=== PATIENT | female | born 1990 | race Caucasian/White ===

== ENCOUNTER 2017-04-23 20:20 | Inpatient (IN) | payer MEDICARE ==
[~2017-04-23] VITALS: Ht 152.4 cm; Wt 98.0 kg
[2017-04-23] MEDS ORDERED: IV NS 0.9% 1,000 ML IV PRN (20:57)
[2017-04-23] MEDS ORDERED: ACETAMINOPHEN 325 MG TABLET PO PRN (21:00)
[2017-04-23] MEDS ORDERED: ACETAMINOPHEN 650 MG/SUPP.RECT RC PRN (21:00)
[2017-04-23] MEDS ORDERED: MAGNESIUM HYDROXIDE 30 ML UDC PO PRN (21:00)
[2017-04-23] MEDS ORDERED: ONDANSETRON HCL/PF 4 MG/2 ML VIAL IVP PRN (21:00)
[2017-04-23] MEDS ORDERED: MAG HYDROX/AL HYDROX/SIMETH 30 ML UDC PO PRN (21:00)
[2017-04-23 22:00] VITALS: BP 135/68
[2017-04-23] MEDS ORDERED: LORAZEPAM INJ 2 MG/ML VIAL IV PRN (22:30)
[2017-04-23] MEDS ORDERED: PIPERACILLIN /TAZOBACTAM 3.375 G VIAL IV ONE (22:39)
[2017-04-23] MEDS ORDERED: ENOXAPARIN SODIUM 40 MG/0.4 ML DISP.SYRIN SQ ONE (22:39)
[2017-04-23] MEDS ORDERED: HYDROMORPHONE 1 MG/1 ML DISP.SYRIN ONE (22:40)
[2017-04-23] MEDS: ENOXAPARIN SODIUM 40 MG/0.4 ML DISP.SYRIN SQ SCH (22:50)
[2017-04-23] MEDS: PIPERACILLIN /TAZOBACTAM 3.375 G in IV D5W 50 ML IV SCH (22:56)
--- NOTE | 2017-04-23 23:00 | NUR ---
MS RN ADMITTING NOTES RECEIVE PT AT 2215 VIA GURNEY FROM [facility] WITH 2 EMT PT ADMIT TO MS UNIT , PT IN STABLE CONDITION NO S/S DISTRESS A/O X4, NO NAUSEA AND VOMITING COMPLAINS AT THIS TIME. BREATHING EVEN AND UNLABORED. HEAD TO TOE ASSESSMENT IS DONE SKIN IS INTACT. TOLERATING ROOM AIR 100%. FAMILY AT BEDSIDE, ON LOW BED, CALL LIGHT WITHIN REACH. SAFETY MEASURES IMPLEMENTED. WILL CONTINUE TO MONITOR.
--- NOTE | 2017-04-23 23:17 | NUR ---
non administration of lovenox: lovenox overide by da hernandez, lovenox 40mg sc ordered by mercedes alarcon, agnes long clarified not to give the medication for possible surgery in am. medication accidentally opened, however wasted with another rn angelica.
[2017-04-23] MEDS: HYDROMORPHONE INJ 2 MG/ML DISP.SYRIN IV PRN (23:24)
--- NOTE | 2017-04-23 23:24 | NUR ---
MS RN NOTES PT COMPLAINS OF PAIN 8-10 IN THE LLQ ACUTE ACHING NON PHARMACOLOGICAL INTERVENTIONS INEFFECTIVE WILL GIVE DILAUDID 1 MG IV VSS
--- NOTE | 2017-04-23 23:25 | NUR ---
MS RN NOTES DILAUDID 1 MG IV TOLERATED WELL. IN STABLE CONDITION
[2017-04-24] MEDS ORDERED: PIPERACILLIN /TAZOBACTAM 3.375 G VIAL IV ONE ×2 (05:07→05:13)
[2017-04-24] MEDS: PIPERACILLIN /TAZOBACTAM 3.375 G in IV D5W 50 ML IV SCH (05:32)
--- NOTE | 2017-04-24 06:23 | NUR ---
MS RN CLOSING NOTES PATIENT COMFORTABLY ASLEEP AND EASILY AWAKEN, HEAD OF BED ELEVATED FOR BETTER LUNG EXPANSION, TOLERATING ROOM AIR 02 SAT 98% RESPIRATIONS EVEN AND UNLABORED. NO S/S OF ACUTE DISTRESS, IN STABLE CONDITION. AFEBRILE, NURSING CARE RENDERED, NEEDS ATTENDED AND ANTICIPATED, MAINTAINS NPO, NO COMPLAIN OF PAIN AT THIS TIME. KEPT CLEAN AND DRY AND COMFORTABLE. GOOD SKIN CARE PROVIDED.. FREQUENT VISUAL CHECK DONE FOR SAFETY EVERY 2 HOURS. NO NAUSEA NO VOMITING AT THIS TIME. SAFE HAZARD FREE ENVIRONMENT PROVIDED. CALL LIGHT WITHIN EASY TO REACH, ON LOW BED AT ALL TIMES TO ENSURE SAFETY, WILL ENDORSE TO THE NEXT SHIFT CONTINUE PLAN OF CARE.
[2017-04-24 06:59] LABS: BASOPHILS # (AUTO) 0.1 /CMM (0.0-0.2); BASOPHILS % (AUTO) 1.2 % (0.0-2.0); EOSINOPHILS % (AUTO) 0.3 % (0.0-6.0); HEMATOCRIT 26 % (33-45); HEMOGLOBIN 8.1 g/dL (11.5-14.8); LYMPHOCYTES # (AUTO) 2.1 /CMM (0.8-4.8); LYMPHOCYTES % (AUTO) 30.5 % (20.0-44.0); MEAN CORPUSCULAR HEMOGLOBIN 18 PG (26.0-33.0); MEAN CORPUSCULAR HGB CONC 31 g/dl (31.0-36.0); MEAN CORPUSCULAR VOLUME 58 fL (82-100); MONOCYTES # (AUTO) 0.4 /CMM (0.1-1.30); MONOCYTES % (AUTO) 5.8 % (2.0-12.0); NEUTROPHILS # (AUTO) 4.2 /CMM (1.8-8.9); NEUTROPHILS % (AUTO) 62.2 % (43.0-81.0); PLATELET COUNT (AUTO) 277 /CMM (150-450); RDW COEFFICIENT OF VARIATION 20.9 (11.5-15.0); RED BLOOD CELL COUNT(AUTO) 4.48 MIL/uL (4.0-5.2); WHITE BLOOD COUNT (AUTO) 6.8 K/uL (4.3-11.0)
[2017-04-24 07:19] LABS: CALCIUM, SERUM 8.5 mg/dL (8.5-10.1); CREATININE 0.6 mg/dL (0.6-1.3); PHOSPHORUS 4.3 mg/dL (2.5-4.9); POTASSIUM 3.6 mmol/L (3.5-5.1)
[2017-04-24 07:23] LABS: PROTHROMBIN TIME 10.4 SECS (9.5-12.7)
[2017-04-24 07:26] LABS: THYROID STIMULATING HORMONE 2.859 uIU/mL (0.358-3.74)
--- NOTE | 2017-04-24 07:46 | NUR ---
MS/RN NOTES PATIENT RESTING IN BED WITH FAMILY AT BEDSIDE, PREPING FOR SURGERY. CONSENTS SIGNED AT THE BEDSIDE FOR SCHEDULED SURGERY FOR 0800AM. PATIENT ALERT AND ORIENTED X4, AMBULATORY, COGNITIVE STATUS INTACT. AGREED TO SURGERY AND SIGNED ALL CONSENT FORMS. NPO STATUS, IV TO LEFT FA INFUSING NS AT 75CC/HR. PATIENT READY FOR SURGERY. WILL CONTINUE TO MONITOR
[2017-04-24] MEDS ORDERED: FENTANYL PF 100MCG/2ML AMPUL ONE ×2 (07:53→09:19)
[2017-04-24] MEDS ORDERED: MIDAZOLAM HCL 2 MG/2ML VIAL ONE (07:53)
[2017-04-24] MEDS ORDERED: ROCURONIUM BROMIDE 50 MG/5 ML ONE (07:54)
[2017-04-24 08:00] VITALS: BP 100/50
[2017-04-24] MEDS ORDERED: BUPIVACAINE 0.5 % PF 150 MG/30 ML VIAL ONE (08:08)
[2017-04-24] MEDS: FAMOTIDINE/PF INJ 20 MG/2 ML VIAL IV SCH ×2 (09:00→21:04)
--- NOTE | 2017-04-24 09:00 | NUR ---
RN NOTES PT. NOT IN ROOM. DID NOT ADMINISTER PEPCID DUE TO PT. BEING IN SURGERY AT THIS TIME.
[2017-04-24 09:33] LABS: HEMATOCRIT 27 % (33-45); HEMOGLOBIN 8.1 g/dL (11.5-14.8); MEAN CORPUSCULAR HEMOGLOBIN 18 PG (26.0-33.0); MEAN CORPUSCULAR HGB CONC 30 g/dl (31.0-36.0); MEAN CORPUSCULAR VOLUME 59 fL (82-100); RDW COEFFICIENT OF VARIATION 21.3 (11.5-15.0); RED BLOOD CELL COUNT(AUTO) 4.54 MIL/uL (4.0-5.2); WHITE BLOOD COUNT (AUTO) 6.7 K/uL (4.3-11.0)
[2017-04-24 09:34] LABS: BASOPHILS % (AUTO) 0.3 % (0.0-2.0); EOSINOPHILS % (AUTO) 0.6 % (0.0-6.0); LYMPHOCYTES # (AUTO) 2.1 /CMM (0.8-4.8); LYMPHOCYTES % (AUTO) 31.1 % (20.0-44.0); MONOCYTES # (AUTO) 0.3 /CMM (0.1-1.30); MONOCYTES % (AUTO) 4.5 % (2.0-12.0); NEUTROPHILS # (AUTO) 4.2 /CMM (1.8-8.9); NEUTROPHILS % (AUTO) 63.5 % (43.0-81.0); PLATELET COUNT (AUTO) 275 /CMM (150-450)
[2017-04-24 10:00] VITALS: BP 113/55
--- NOTE | 2017-04-24 10:00 | NUR ---
RN NOTES PT. IS BACK FROM OR IN ROOM 322 BED 2.
--- NOTE | 2017-04-24 10:00 | NUR ---
RN NOTES POST - OP, MONITORED PT.'S VS Q15MIN X2, Q30MIN X2, Q1HR X2, AND Q 4HS. VITAL SIGNS STABLE.
--- NOTE | 2017-04-24 10:02 | NUR ---
MS/RN NOTES PATIENT REASSIGNED TO NURSE JOLLEY FOR MELANIE.
[2017-04-24] MEDS: HYDROMORPHONE INJ 2 MG/ML DISP.SYRIN IV PRN (10:31)
--- NOTE | 2017-04-24 10:54 | NUR ---
RN NOTES NOTIFIED MD AFTER GIVING DILAUDID PT. SAID THAT SHE WAS FEELING PRESSURE IN HER HEAD, AND BEHIND HER EYES, OKAY TO DISCONTINUE DILAUDID PER MD.
[2017-04-24] MEDS: IV D5/0.45 NACL W/20 MEQ KCL 1L IV PRN ×2 (11:17)
[2017-04-24] MEDS: ANCEF 1 GM/50 ML D5W IV SCH ×6 (12:23→23:52)
[2017-04-24] MEDS: oxyCODONE/APAP (5/325 MG) 1 UDTAB TABLET PO PRN ×3 (12:32→21:04)
[2017-04-24 16:00] VITALS: BP 121/69
--- NOTE | 2017-04-24 19:14 | NUR ---
RN CLOSING NOTES PT. IS IN BED A&OX4 WATCHING TV. BREATHING UNLABORED, AND EVENLY ON ROOM AIR. NO S/S OF ACUTE DISTRESS. IV FLUIDS RUNNING. JONELLE STOCKING ARE ON WITH DVT PUMPS ON. BED IS IN LOW, LOCKED POSITION, 2 SIDE RAILS UP, AND INSTRUCTED PT. TO USE CALL LIGHT FOR ASSISTANCE. WILL ENDORSE REPORT TO NURSE.
--- NOTE | 2017-04-24 19:30 | NUR ---
ms rn note Received patient awake and alert in bed. Family at bedside. No respiratory distress or sob noted. Patient has 5/10 pain to abdomen. Will administer medication as ordered. Relaxation techniques provided. Iv site intact, with fluids running as ordered. Dressing to abdomen C/D/I. Bed locked and in lowest position. Side rails up, call light within reach. Instructed patient to use call light when assistance is needed. Will continue to monitor.
[2017-04-24 20:00] VITALS: BP 108/52
[2017-04-24] MEDS: ENOXAPARIN SODIUM 40 MG/0.4 ML DISP.SYRIN SQ SCH (21:00)
[2017-04-24 22:00] VITALS: BP 108/52
--- NOTE | 2017-04-24 22:05 | NUR ---
MS RN NOTE BARI ISIDRO. S/P LAP. APPENDECTOMY TODAY.
[2017-04-25] MEDS: IV D5/0.45 NACL W/20 MEQ KCL 1L IV PRN ×2 (02:23)
[2017-04-25] MEDS: oxyCODONE/APAP (5/325 MG) 1 UDTAB TABLET PO PRN ×2 (02:24→12:04)
[2017-04-25] MEDS ORDERED: HYDROMORPHONE 1 MG/1 ML DISP.SYRIN ONE (03:25)
[2017-04-25] MEDS ORDERED: HYDROMORPHONE 1 MG/1 ML DISP.SYRIN IV PRN (03:30)
[2017-04-25 04:00] VITALS: BP 112/66
[2017-04-25] MEDS: ANCEF 1 GM/50 ML D5W IV SCH ×4 (05:11→13:18)
--- NOTE | 2017-04-25 06:38 | NUR ---
MS RN NOTE PATIENT STABLE. ALL NEEDS MET AND ATTENDED TO. WILL ENDORSE TO DAY SHIFT FOR MELANIE.
[2017-04-25 08:00] VITALS: BP 100/58
--- NOTE | 2017-04-25 08:30 | NUR ---
MS RN OPENING NOTES PT A&0X3, MOTHER AT BEDSIDE. BED IN LOWEST LOCKED POSITION WITH HANDRAILSX2 AND CALL SALTER WITHIN REACH. PT TOLERATING ROOM AIR WITH NO SOB. BOWEL SOUNDS ACTIVE ALL VITALS WNL. PT REPORTS PERIUMBILICAL PAIN /. PT WITH LEFT FOREARM IV G#20 INTACT AND OPERATIONAL. PT WITHOUT CONCERNS OR COMPLAINTS AT THIS TIME.
[2017-04-25] MEDS: FAMOTIDINE/PF INJ 20 MG/2 ML VIAL IV SCH (09:22)
[2017-04-25] MEDS ORDERED: HYDR-552 PO (09:28)
[2017-04-25] MEDS ORDERED: CEPH-570 PO (09:33)
[2017-04-25 11:01] LABS: BASOPHILS # (AUTO) 0.1 /CMM (0.0-0.2); BASOPHILS % (AUTO) 0.8 % (0.0-2.0); EOSINOPHILS # (AUTO) 0.1 /CMM (0.0-0.7); HEMATOCRIT 26 % (33-45); HEMOGLOBIN 7.7 g/dL (11.5-14.8); LYMPHOCYTES # (AUTO) 2.8 /CMM (0.8-4.8); LYMPHOCYTES % (AUTO) 34.3 % (20.0-44.0); MEAN CORPUSCULAR HEMOGLOBIN 18 PG (26.0-33.0); MEAN CORPUSCULAR HGB CONC 30 g/dl (31.0-36.0); MEAN CORPUSCULAR VOLUME 59 fL (82-100); MONOCYTES # (AUTO) 0.7 /CMM (0.1-1.30); MONOCYTES % (AUTO) 8.1 % (2.0-12.0); NEUTROPHILS # (AUTO) 4.6 /CMM (1.8-8.9); NEUTROPHILS % (AUTO) 55.8 % (43.0-81.0); PLATELET COUNT (AUTO) 308 /CMM (150-450); RDW COEFFICIENT OF VARIATION 21.3 (11.5-15.0); RED BLOOD CELL COUNT(AUTO) 4.36 MIL/uL (4.0-5.2); WHITE BLOOD COUNT (AUTO) 8.2 K/uL (4.3-11.0)
[2017-04-25] MEDS ORDERED: BISACODYL (5 MG) 5 MG TABLET.DR PO PRN (11:30)
[2017-04-25 11:32] LABS: BAND % (MANUAL) 1 % (0.0-5.0); EOSINOPHILS % (MANUAL) 1 % (0-4); LYMPHOCYTES % (MANUAL) 29 % (16-48); MONOCYTES % (MANUAL) 7 % (0-11.0); NEUTROPHILS % (MANUAL) 62 (42-76)
[2017-04-25 16:00] VITALS: BP 122/69
--- NOTE | 2017-04-25 16:33 | NUR ---
MS RN CLOSING NOTES PT A&OX3 WITH FAMILY AT BEDSIDE. BED IN LOWEST LOCKED POSITION, HANDRAILSX2 AND CALL SALTER WITHIN REACH. NO ACUTE DISTRESS REPORTED OR OBSERVED. PT TOLERATING ROOM AIR WITH NO SOB, VITALS WNL, PAIN CONTROL ADEQUATE. IV REMOVED. ALL DAY SHIFT DUTIES ATTENDED TO. PT PREPARED FOR D/C AND HAS ALL BELONGS. PT BRIEFED AND REPORTS UNDERSTANDING [facility] DC PACKET, POC AND FOLLOW UP APPOINTMENT WITH PCP. PT WITH ROUTE RELIEF DRIVER WHEELCHAIR ESCORT TO CAR. PT WITHOUT CONCERNS OR COMPLAINTS AT THIS TIME.
== END 2017-04-25 16:35 | disposition home or self-care (01) | DRG 342 ==
LOC: MED 20:23 → UNDOADMIN 20:23 → MED 22:00
PROVIDERS: ADMIT Nurse Practitioner Acute Care; ATTEND Nurse Practitioner Acute Care
PROC: 0DTJ4ZZ Resection of Appendix, Percutaneous Endoscopic Approach (ICD-10-PCS; principal; 2017-04-24 08:29)
DX: K35.80 Unspecified acute appendicitis (principal); Z68.41 Body mass index [BMI] 40.0-44.9, adult; E44.0 Moderate protein-calorie malnutrition; D50.9 Iron deficiency anemia, unspecified; E66.9 Obesity, unspecified; L50.9 Urticaria, unspecified
CPT/HCPCS: 36415; 80048-TC; 80061-TC; 82728-TC; 83540-TC; 83735-TC; 84100-TC; 84443-TC; 85025-TC; 85610-TC; 85730-TC; 86850-TC; 87081-TC; 88304-TC; 88305-TC; A6403; J0690; J1100; J1170; J1650; J1885; J2250; J2405; J2543; J2704; J2710; J3010; J3480; J3490; J7030; J7060; Z7610

== ENCOUNTER 2017-05-02 12:47 | Outpatient (CLI) | payer MEDICARE ==
[~2017-05-02 12:47] MED LIST: CEPH-570 PO; HYDR-552 PO
[2017-05-02 13:01] VITALS: BP 136/76
== END 2017-05-02 23:59 | disposition home or self-care (01) ==
LOC: MSC 12:47
PROVIDERS: ATTEND Internal Medicine
DX: K35.80 Unspecified acute appendicitis (principal); E66.9 Obesity, unspecified; R48.0 Dyslexia and alexia; F81.9 Developmental disorder of scholastic skills, unspecified; Z68.30 Body mass index [BMI] 30.0-30.9, adult